=== PATIENT | male | born 1955 | race Two or more races ===

== ENCOUNTER 2018-08-14 15:43 | Emergency (ER) | payer OTHER ==
[~2018-08-14] VITALS: Ht 177.8 cm; Wt 103.9 kg
[~2018-08-14 15:43] MED LIST: ATENOLOL25 MG; CATAFLAM50 MG; CATAFLAM50 MG PO; COZAAR25 MG; DICLOFENAC POTA50 MG; LANSOPRAZOLE30 MG; LIPITOR20 MG; PREVACID30 MG
== END 2018-08-15 13:32 | disposition left against medical advice (07) ==
LOC: ER 15:43
DX: T18.128A Food in esophagus causing other injury, initial encounter (principal); M54.2 Cervicalgia; X58.XXXA Exposure to other specified factors, initial encounter; Y93.89 Activity, other specified; Y92.89 Other specified places as the place of occurrence of the external cause; Y99.8 Other external cause status

== ENCOUNTER 2018-10-02 09:01 | Outpatient (CLI) | payer OTHER | END 2018-10-02 09:03 | disposition home or self-care (01) | LOC: RX STUDY 09:01 | DX: R13.19 Other dysphagia (principal) ==

== ENCOUNTER 2019-01-28 08:35 | Outpatient (CLI) | payer OTHER | END 2019-01-28 08:41 | disposition home or self-care (01) | LOC: RX STUDY 08:35 | DX: R13.19 Other dysphagia (principal) ==

== ENCOUNTER 2019-08-12 08:55 | Outpatient (CLI) | payer OTHER | END 2019-08-12 09:03 | disposition home or self-care (01) | LOC: SONOGRAMA 08:55 | PROVIDERS: ATTEND Internal Medicine Cardiovascular Disease | DX: R10.84 Generalized abdominal pain (principal) ==

== ENCOUNTER 2020-05-09 | Outpatient (CLI) | payer OTHER | END 2020-05-09 16:35 | disposition home or self-care (01) | LOC: PPH VACUNA | PROVIDERS: ATTEND Emergency Medicine Pediatric Emergency Medicine | DX: Z23 Encounter for immunization (principal) ==

== ENCOUNTER 2020-09-22 09:00 | Outpatient (CLI) | payer OTHER | END 2020-09-22 09:05 | disposition home or self-care (01) | LOC: RX STUDY 09:00 | PROVIDERS: ATTEND Internal Medicine Cardiovascular Disease | DX: R13.19 Other dysphagia (principal) ==

== ENCOUNTER 2020-11-07 08:00 | Outpatient (CLI) | payer OTHER | END 2020-11-07 08:30 | disposition home or self-care (01) | LOC: PPH VACUNA 08:00 | PROVIDERS: ATTEND Emergency Medicine Pediatric Emergency Medicine | DX: Z23 Encounter for immunization (principal) ==

== ENCOUNTER 2021-01-10 07:48 | Outpatient (CLI) | payer OTHER | END 2021-01-10 07:54 | disposition home or self-care (01) | LOC: SONOGRAMA 07:48 | PROVIDERS: ATTEND Internal Medicine Cardiovascular Disease | DX: R10.84 Generalized abdominal pain (principal); M46.47 Discitis, unspecified, lumbosacral region; M12.9 Arthropathy, unspecified; M12.89 Other specific arthropathies, not elsewhere classified, multiple sites ==

== ENCOUNTER 2021-04-10 10:51 | Emergency (ER) | payer OTHER ==
[~2021-04-10] VITALS: Ht 177.8 cm; Wt 109.8 kg
== END 2021-04-10 14:32 | disposition home or self-care (01) ==
LOC: ER 10:51
DX: R10.84 Generalized abdominal pain (principal); I10 Essential (primary) hypertension

== ENCOUNTER 2021-06-06 08:00 | Outpatient (CLI) | payer OTHER | END 2021-06-06 08:30 | disposition home or self-care (01) | LOC: PPH VACUNA 08:00 | PROVIDERS: ATTEND Emergency Medicine Pediatric Emergency Medicine | DX: Z23 Encounter for immunization (principal) ==

== ENCOUNTER 2021-08-16 11:46 | Outpatient (CLI) | payer OTHER | END 2021-08-16 11:53 | disposition home or self-care (01) | LOC: RAD 11:46 | PROVIDERS: ATTEND Pediatrics | DX: R09.1 Pleurisy (principal); R07.89 Other chest pain ==

== ENCOUNTER 2021-08-29 08:55 | Outpatient (CLI) | payer OTHER | END 2021-08-29 09:06 | disposition home or self-care (01) | LOC: SONOGRAMA 08:55 | PROVIDERS: ATTEND Internal Medicine Cardiovascular Disease | DX: R10.9 Unspecified abdominal pain (principal) ==

== ENCOUNTER 2021-08-31 07:26 | Outpatient (CLI) | payer OTHER | END 2021-08-31 07:28 | disposition home or self-care (01) | LOC: TOM 07:26 | PROVIDERS: ATTEND Internal Medicine Cardiovascular Disease | DX: R07.9 Chest pain, unspecified (principal); J44.9 Chronic obstructive pulmonary disease, unspecified ==

== ENCOUNTER 2022-12-26 09:10 | Outpatient (CLI) | payer OTHER | END 2022-12-26 09:22 | disposition home or self-care (01) | LOC: SONOGRAMA 09:10 | PROVIDERS: ATTEND Urology | DX: R31.21 Asymptomatic microscopic hematuria (principal) ==

== ENCOUNTER 2023-01-14 13:11 | Outpatient (CLI) | payer OTHER | END 2023-01-14 13:17 | disposition home or self-care (01) | LOC: RAD 13:11 | PROVIDERS: ATTEND Orthopaedic Surgery | DX: R07.9 Chest pain, unspecified (principal) ==

== ENCOUNTER 2023-02-01 08:40 | Outpatient (CLI) | payer OTHER | END 2023-02-01 08:41 | disposition home or self-care (01) | LOC: NUCLEAR 08:40 | PROVIDERS: ATTEND Orthopaedic Surgery | DX: M25.561 Pain in right knee (principal); M25.461 Effusion, right knee ==

== ENCOUNTER 2023-03-05 14:14 | Outpatient (CLI) | payer OTHER | END 2023-03-05 14:25 | disposition home or self-care (01) | LOC: RAD 14:14 | PROVIDERS: ATTEND Orthopaedic Surgery | DX: M25.562 Pain in left knee (principal) ==

== ENCOUNTER → 2023-03-09 | Emergency (ER) | payer OTHER ==
[~2023-03-09] VITALS: Ht 180.3 cm; Wt 98.9 kg
[~2023-03-09] MED LIST changes: +METFORMIN HCL500 M4 PO; +PANTOPRAZOLE SO40 MG PO; +SYNTHROID100 MCG PO
[2023-03-09 10:39] LABS: HEMOGLOBIN 16.6 g/dL (13-16.00); MEAN CELL VOLUME 94.2 fL (80.0-100.00); MEAN CORPUSCULAR HGB CONC 33.9 g/dl (32.0-36.0); PLATELET COUNT 179 K/uL (150-450); RED CELL DISTRIBUTION WIDTH 16.8 % (11.5-14.5)
[2023-03-09 11:12] LABS: CREATININE SERUM 0.91 mg/dL (0.70-1.30); GFR 82.36; POTASSIUM 4.25 mEq/L (3.5-5.1)
[2023-03-09 11:21] LABS: URINE APPEARANCE Clear; URINE BILIRRUBIN Negative (NEGATIVE); URINE BLOOD Trace; URINE COLOR Dark Yellow; URINE GLUCOSE Negative (NEGATIVE); URINE LEUKOCYTE Negative; URINE NITRATE Negative; URINE PROTEIN Negative (NEGATIVE); URINE UROBILINOGEN 0.2 E.U./dl
[2023-03-09 11:25] LABS: URINE EPITHELIAL CELLS 10.1 uL (0.0-38.8); URINE RBC 34.9 uL (0.0-20.8); URINE WBC 10.6 uL (0.0-23.2)
[2023-03-09 11:50] LABS: URINE BACTERIA 2.5 uL (0.0-1933)
== END | disposition home or self-care (01) ==
LOC: ER 08:51
PROVIDERS: Emergency Medicine
DX: L03.115 Cellulitis of right lower limb (principal); I10 Essential (primary) hypertension; E11.9 Type 2 diabetes mellitus without complications; Z79.84 Long term (current) use of oral hypoglycemic drugs
CPT/HCPCS: 36415; 96372; 99284; J0696